=== PATIENT | male | born 1960 ===

== ENCOUNTER → 2024-07-31 08:00 | Outpatient (CLI) | payer OTHER ==
[~2024-07-31] VITALS: Ht 274.3 cm; Wt 5.0 kg
[~2024-07-31 08:00] MED LIST: CASODEX50 MG PO; SYNTHROID50 MCG PO
[2024-07-31 09:21] VITALS: BP 124/75
[2024-07-31 09:35] LABS: HEMATOCRIT 38.3 % (39.0-48.0); HEMOGLOBIN 13.2 g/dL (13-16.00); MEAN CELL VOLUME 89.4 fL (80.0-100.00); MEAN CORPUSCULAR HEMOGLOBIN 30.9 pg (27.00-32.0); MEAN CORPUSCULAR HGB CONC 34.5 g/dl (32.0-36.0); PLATELET COUNT 271 K/uL (150-450); RED BLOOD COUNT 4.28 M/uL (4.00-6.00); RED CELL DISTRIBUTION WIDTH 14.7 % (11.5-14.5)
[2024-07-31 09:48] LABS: URINE APPEARANCE Clear; URINE BILIRRUBIN Negative (NEGATIVE); URINE BLOOD Negative; URINE COLOR Yellow; URINE GLUCOSE Negative (NEGATIVE); URINE KETONE Negative (NEGATIVE); URINE LEUKOCYTE Negative; URINE NITRATE Negative; URINE PROTEIN Negative (NEGATIVE); URINE UROBILINOGEN 0.2 E.U./dl
[2024-07-31 09:49] LABS: URINE RBC 16.2 uL (0.0-20.8)
[2024-07-31 09:50] LABS: URINE BACTERIA 2.4 uL (0.0-1933); URINE CAST 0.29 uL (0.0-1.40); URINE EPITHELIAL CELLS 0.3 uL (0.0-38.8); URINE WBC 0.6 uL (0.0-23.2)
[2024-07-31 10:16] LABS: INR 0.96; PARTIAL THROMBOPLASTIN TIME 27.8 SECONDS (22.0-34.0); PROTHROMBIN TIME 10.5 SECONDS (9.0-11.5)
[2024-07-31 10:44] LABS: CALCIUM 8.8 mg/dL (8.5-10.1); CREATININE SERUM 0.81 mg/dL (0.70-1.30); GFR 96.24; POTASSIUM 4.19 mEq/L (3.5-5.1)
[2024-07-31 11:21] LABS: RH POSITIVE
== END | disposition home or self-care (01) ==
LOC: LAB 08:00 → RAD 08:00 → SURH 08-07 09:00 → EDSTATUS 08-07 09:00 → SURH 08-07 12:15 → EDSTATUS 08-22 09:00
PROVIDERS: ATTEND Urology
DX: C61 Malignant neoplasm of prostate (principal)

== ENCOUNTER 2024-09-18 08:00 | Inpatient (IN) | payer OTHER ==
[~2024-09-18] VITALS: Ht 175.3 cm; Wt 81.6 kg
[2024-09-18 09:14] LABS: HEMATOCRIT 41.6 % (39.0-48.0); HEMOGLOBIN 14.1 g/dL (13-16.00); MEAN CELL VOLUME 89.5 fL (80.0-100.00); MEAN CORPUSCULAR HEMOGLOBIN 30.4 pg (27.00-32.0); PLATELET COUNT 266 K/uL (150-450); RED BLOOD COUNT 4.65 M/uL (4.00-6.00); RED CELL DISTRIBUTION WIDTH 13.4 % (11.5-14.5)
[2024-09-18 09:35] VITALS: BP 126/83
[2024-09-18 09:40] LABS: INR 0.99; PARTIAL THROMBOPLASTIN TIME 27.7 SECONDS (22.0-34.0); PROTHROMBIN TIME 10.8 SECONDS (9.0-11.5)
[2024-09-18 09:51] LABS: URINE APPEARANCE Clear; URINE BILIRRUBIN Negative (NEGATIVE); URINE BLOOD Negative; URINE COLOR Yellow; URINE GLUCOSE Negative (NEGATIVE); URINE KETONE Negative (NEGATIVE); URINE LEUKOCYTE Negative; URINE NITRATE Negative; URINE PROTEIN Negative (NEGATIVE); URINE UROBILINOGEN 0.2 E.U./dl
[2024-09-18 09:55] LABS: URINE EPITHELIAL CELLS 1.4 uL (0.0-38.8); URINE RBC 14.7 uL (0.0-20.8)
[2024-09-18 10:21] LABS: CREATININE SERUM 0.94 mg/dL (0.70-1.30); GFR 81.05; POTASSIUM 4.22 mEq/L (3.5-5.1)
[2024-09-18 10:35] LABS: URINE BACTERIA 3.6 uL (0.0-1933); URINE WBC 1.7 uL (0.0-23.2)
[2024-09-18 11:11] LABS: RH POSITIVE
[2024-09-25] MEDS ORDERED: CEFAZOLIN SODIUM 1,000 MG VIAL IV ONE (09:15)
[2024-09-25] MEDS ORDERED: ENOXAPARIN SODIUM 40 MG/0.4 ML SYRINGE SUBCUTANEO ONE (09:15)
[2024-09-25] MEDS ORDERED: SUGAMMADEX SODIUM 200 MG/2 ML VIAL IV ONE (14:45)
[2024-09-25] MEDS ORDERED: DEXTROSE 5 %-0.45 % SOD CHLORD 1,000 ML IV SCH (15:03)
[2024-09-25] MEDS ORDERED: MORPHINE SULFATE 2 MG/ML CARTRIDGE IV PRN (15:15)
[2024-09-25] MEDS ORDERED: MORPHINE SULFATE 4 MG/ML VIAL IV ONE ×3 (15:20→16:15)
[2024-09-25] MEDS ORDERED: ONDANSETRON HCL 2 MG/ML VIAL IV SCH (17:00)
[2024-09-25] MEDS ORDERED: DOCUSATE SODIUM 100MG CAP PO SCH (17:00)
[2024-09-25] MEDS ORDERED: CEFAZOLIN SODIUM 1,000 MG VIAL IV SCH (17:00)
[2024-09-25] MEDS ORDERED: SIMETHICONE 125 MG CAPSULE PO SCH (17:00)
[2024-09-25] MEDS ORDERED: FAMOtidine 20 MG TABLET PO SCH (17:00)
[2024-09-25 17:25] VITALS: BP 119/74; O2SAT 95
[2024-09-25] MEDS ORDERED: BUTALB/ACETAMINOPHEN/CAFFEINE 1 TAB TABLET PO STA (21:21)
[2024-09-26 00:29] VITALS: BP 102/55; O2SAT 99
[2024-09-26] MEDS ORDERED: LEVOTHYROXINE SODIUM 50 MCG TABLET PO SCH (06:00)
[2024-09-26 07:49] LABS: HEMATOCRIT 36.5 % (39.0-48.0); HEMOGLOBIN 12.3 g/dL (13-16.00); MEAN CELL VOLUME 89.9 fL (80.0-100.00); MEAN CORPUSCULAR HEMOGLOBIN 30.3 pg (27.00-32.0); MEAN CORPUSCULAR HGB CONC 33.7 g/dl (32.0-36.0); PLATELET COUNT 227 K/uL (150-450); RED BLOOD COUNT 4.06 M/uL (4.00-6.00); RED CELL DISTRIBUTION WIDTH 12.7 % (11.5-14.5)
[2024-09-26 08:23] LABS: CALCIUM 7.7 mg/dL (8.5-10.1); CREATININE SERUM 0.78 mg/dL (0.70-1.30); GFR 100.53; POTASSIUM 3.86 mEq/L (3.5-5.1)
[2024-09-26 09:12] VITALS: BP 102/62; O2SAT 96
[2024-09-26] MEDS ORDERED: BUTALB/ACETAMINOPHEN/CAFFEINE 1 TAB TABLET PO PRN (10:00)
[2024-09-26] MEDS ORDERED: OxyCODONE HCL/APAP UD (PERCOCET) PO PRN (12:15)
[2024-09-26] MEDS ORDERED: ENOXAPARIN SODIUM 40 MG/0.4 ML SYRINGE SUBCUTANEO NR (12:30)
[2024-09-26 17:59] VITALS: BP 107/67; O2SAT 18
[2024-09-26] MEDS ORDERED: OXYBUTYNIN CHLORIDE 5 MG TABLET PO PRN (19:30)
[2024-09-26 23:37] VITALS: BP 107/67; O2SAT 97
[2024-09-27 07:47] VITALS: BP 103/69; O2SAT 96
[2024-09-27 16:19] VITALS: BP 117/72; O2SAT 100
== END 2024-09-27 22:10 | disposition home or self-care (01) | DRG 708 ==
LOC: SURG 09-25 05:36 → O/R 09-25 05:36 → SURH 09-25 07:00 → SURG 09-25 15:45
PROVIDERS: ADMIT Urology; ATTEND Urology
PROC: 8E0W4CZ Robotic Assisted Procedure of Trunk Region, Percutaneous Endoscopic Approach (ICD-10-PCS; 2024-09-25)
PROC: 0VT04ZZ Resection of Prostate, Percutaneous Endoscopic Approach (ICD-10-PCS; principal; 2024-09-25 07:00)
DX: C61 Malignant neoplasm of prostate (principal); E03.9 Hypothyroidism, unspecified